=== PATIENT | female | born 1990 | race Hispanic/Latino ===

== ENCOUNTER 2017-05-20 15:03 | Observation (INO) | payer BC ==
[2017-05-20 15:28] VITALS: BP 119/84; PULSE 99; RESP 16; TEMP 97.5; O2SAT 98
[2017-05-20] MEDS ORDERED: Sodium Chloride 0.9% 1,000 ML IV STA (16:07)
--- NOTE | 2017-05-20 16:46 | ED PDOC ---
HPI: Abdomen Time Seen by Provider: 05/20/17 15:53 Chief Complaint (Nursing): Abdominal Pain Chief Complaint (Provider): UTI History Per: Patient History/Exam Limitations: no limitations Onset/Duration Of Symptoms: Days (x2 weeks) Current Symptoms Are (Timing): Still Present Associated Symptoms: Chills, Nausea, Back Pain. denies: Vomiting, Diarrhea Additional Complaint(s): Urszula An, a 26 year old with a past medical history of a urinary tract infection presents to the ED for abdominal pain and back pain. The patient states that she was diagnosed 2 weeks ago with a UTI which led to a kidney infection. She reports that she was prescribed antibiotics and tylenol codeine with which she has been compliant. She states that she has had intermittent dysuria and has also noted some nausea and chills. Denies vomiting, diarrhea. PMD: Dr. Alfonso Conteh Abnormal Vaginal Bleeding: No Past Medical History Reviewed: Historical Data, Nursing Documentation, Vital Signs Vital Signs: Last Vital Signs Temp 97.5 F L 05/20/17 15:24 Pulse 99 H 05/20/17 15:24 Resp 16 05/20/17 15:24 BP 119/84 05/20/17 15:24 Pulse Ox 98 05/20/17 17:31 - Medical History Other PMH: Urinary Tract Infection - Family History Family History: States: Unknown Family Hx - Allergies Allergies/Adverse Reactions: Allergies Allergy/AdvReac Type Severity Reaction Status Date / Time No Known Allergies Allergy Verified 05/20/17 15:24 Review of Systems Constitutional: Positive for: Chills Gastrointestinal: Positive for: Nausea, Abdominal Pain. Negative for: Vomiting , Diarrhea Genitourinary Female: Positive for: Dysuria Physical Exam - Reviewed Nursing Documentation Reviewed: Yes Vital Signs Reviewed: Yes - Physical Exam Appears: Positive for: Non-toxic, No Acute Distress Head Exam: Positive for: ATRAUMATIC, NORMAL INSPECTION, NORMOCEPHALIC Skin: Positive for: Normal Color, Warm, Dry Eye Exam: Positive for: Normal appearance, EOMI, PERRL ENT: Positive for: Pharynx Is Neck: Positive for: Normal, Painless ROM, Supple Cardiovascular/Chest: Positive for: Regular Rate, Rhythm, Chest Non Tender. Negative for: Tachycardia Respiratory: Positive for: Normal Breath Sounds. Negative for: Rales, Rhonchi, Wheezing, Respiratory Distress Gastrointestinal/Abdominal: Positive for: Bowel Sounds, Soft, Tenderness ( diffuse abdominal tenderness). Negative for: Mass, Guarding, Rebound Back: Negative for: Normal Inspection (bilateral flank tenderness), L CVA Tenderness, R CVA Tenderness Extremity: Positive for: Normal ROM. Negative for: Tenderness, Calf Tenderness , Deformity, Swelling Neurologic/Psych: Positive for: Alert, Oriented, Gait - Laboratory Results Result Diagrams: 05/20/17 16:10 05/20/17 16:57 Interpretation Of Abn Labs: urine wbc - ECG O2 Sat by Pulse Oximetry: 98 (RA) Pulse Ox Interpretation: Normal - CT Scan/US ct Other Rad Studies (CT/US): Read By Radiologist Other Rad Interpretation: no acute - Progress ED Course And Treament: 1936: Stable. AAOx3. Pain free. Eating chips in room. Will put on macrobid for uti. Stop bactrim. Medical Decision Making Medical Decision Makin Initial Impression: 26 year old female presenting with abdominal pain and back pain Initial Plan: * VBG * CT ABD&PELVIS * Comp Metabolic Panel * Lipase * Upreg * Udip * CBC * NS 1000mls IV 1000mls/hr * Toradol 15mg IVP * Zofran 4mg IV * Blood Culture * Urine Culture * Admit 1608 * Urinalysis * Reevaluation Scribe Attestation: Documented by Meeta Wolff acting as a scribe forMD. Scribe Attestation: All medical record entries made by the Scribe were at my direction and personally dictated by me. I have reviewed the chart and agree that the record accurately reflects my personal performance of the history, physical exam, medical decision making, and the department course for this patient. I have also personally directed, reviewed, and agree with the discharge instructions and disposition. ED OBSERVATION Discharge: Yes Date of observation admission: 05/20/17 Time of observation admission: 16:08 - Observation admission statement Patient is being placed in observation because:: Pending CT ABD&Pelvis. - Goals of Observation Goals of observation are:: continue monitoring - Progress Note Progress Note: 05/20/17 17:30 Continued observation, CT still pending. Disposition - Clinical Impression Clinical Impression: Abdominal pain, UTI (urinary tract infection) - Patient ED Disposition Is Patient to be Admitted: No Counseled Patient/Family Regarding: Studies Performed, Diagnosis, Need For Followup, Rx Given - Disposition Disposition: Routine/Home Disposition Time: 19:37 Condition: STABLE
[2017-05-20 17:00] LABS: RBC URINE 1 /hpf (0-3); URINE BILIRUBIN NEGATIVE (NEGATIVE); URINE BLOOD NEGATIVE (NEGATIVE); URINE COLOR YELLOW (YELLOW); URINE GLUCOSE (UA) NEG (Normal); URINE KETONE NEGATIVE (NEGATIVE); URINE LEUKOCYTE ESTERASE SMALL Leu/uL (Negative); URINE PROTEIN NEGATIVE (NEGATIVE); URINE UROBILINOGEN 0.2-1.0 mg/dL (0.2-1.0)
[2017-05-20 17:04] LABS: VENOUS BLOOD GAS BASE EXCESS -3.9 mmol/L (0.0-2.0); VENOUS BLOOD GAS PCO2 36 mmHg (40-60); VENOUS BLOOD PH 7.37 (7.32-7.43)
[2017-05-20 17:05] LABS: BASO % 0.3 % (0.0-2.0); EOS # 0.1 K/uL (0.0-0.7); HEMATOCRIT 40.3 % (34.0-47.0); LYMPH # 2.6 K/uL (1.0-4.3); LYMPH % 31.4 % (20.0-40.0); MEAN CELL VOLUME 90.7 fl (81.0-99.0); MEAN CORPUSCULAR HEMOGLOBIN 30.4 pg (27.0-31.0); MEAN CORPUSCULAR HGB CONC 33.5 g/dL (33.0-37.0); MEAN PLATELET VOLUME 8.3 fl (7.2-11.7); MONO # 0.5 K/uL (0.0-0.8); MONO % 6.4 % (0.0-10.0); NEUT % 60.9 % (50.0-75.0); RED CELL DISTRIBUTION WIDTH 12.4 % (11.5-14.5); WHITE BLOOD COUNT 8.3 K/uL (4.8-10.8)
[2017-05-20 17:05] LABS: WBC URINE 6 /hpf (0-5)
[2017-05-20 17:15] LABS: ALB/GLOB RATIO 1.4 (1.0-2.1); ALKALINE PHOSPHATASE 34 U/L (38-126); ALT/SGPT 38 U/L (9-52); AST/SGOT 24 U/L (14-36); BILIRUBIN,TOTAL 0.3 mg/dl (0.2-1.3); BLOOD UREA NITROGEN 11 mg/dl (7-17); CALCIUM 9.2 mg/dL (8.4-10.2); CARBON DIOXIDE 21 mmol/L (22-30); CHLORIDE 106 mmol/L (98-107); GFR AFRICAN-AMERICAN > 60; GLUCOSE,RANDOM 79 mg/dL (65-105); LIPASE 77 U/L (23-300); POTASSIUM 4.7 MMOL/L (3.6-5.0); SODIUM 138 mmol/l (132-148); TOTAL PROTEIN 7.6 G/DL (6.3-8.2)
[2017-05-20] MEDS ORDERED: Iohexol 300 100 ML IJ ONE (17:59)
[2017-05-20] MEDS ORDERED: Sodium Chloride 0.9% 50 ML IV ONE (18:00)
--- NOTE | 2017-05-20 18:48 | CT ---
PROCEDURE: CT Abdomen and Pelvis with contrast HISTORY: Abdominal pain, attention kidneys. COMPARISON: None. TECHNIQUE: Contrast dose: 90 cc Omnipaque 300 Radiation dose: Total exam DLP = 32.46 mGy-cm. This CT exam was performed using one or more of the following dose reduction techniques: Automated exposure control, adjustment of the mA and/or kV according to patient size, and/or use of iterative reconstruction technique. FINDINGS: LOWER THORAX: Unremarkable. LIVER: Sub cm cyst/mass right hepatic lobe which cannot be further characterize based on size, likely a benign finding. GALLBLADDER AND BILE DUCTS: Unremarkable. PANCREAS: Unremarkable. No gross lesion or ductal dilatation. SPLEEN: Unremarkable. ADRENALS: Unremarkable. No mass. KIDNEYS AND URETERS: The kidneys enhance symmetrically. No renal calculi. No renal masses identified. No evidence of renal vein thrombosis. No renal artery abnormalities. No perinephric findings of consequence. VASCULATURE: Unremarkable. No aortic aneurysm. BOWEL: Constipation without fecal impaction or obstruction. APPENDIX: Normal appendix. PERITONEUM: Unremarkable. No free fluid. No free air. LYMPH NODES: Unremarkable. No enlarged lymph nodes. BLADDER: Unremarkable. REPRODUCTIVE: Contrast-enhancing characteristics particularly in the right adnexa also to lesser extent in the left likely reflect the sequela of recently ruptured adnexal cyst. No appreciable free fluid in the cul-de-sac. No loculated air or free air. BONES: No acute fracture. OTHER FINDINGS: None. IMPRESSION: No acute findings related to/accounting for the clinical presentation. Additional benign and/or incidental findings described above.
== END 2017-05-20 19:37 | disposition home or self-care (01) ==
LOC: H.ER 15:03 → H.EROBSV 16:08
PROVIDERS: ADMIT Emergency Medicine; ATTEND Emergency Medicine
DX: N39.0 Urinary tract infection, site not specified (principal); R10.9 Unspecified abdominal pain
CPT/HCPCS: 74177; 80053; 81003; 81025; 82803; 83690; 85025; 87040; 87086; 96361; 96374; 96375; 99282; G0378; J1885; J2405; J7040; Q9967